=== PATIENT | male | born 1965 | race Two or more races ===

== ENCOUNTER 2023-03-07 02:30 | Emergency (ER) | payer OTHER ==
[~2023-03-07] VITALS: Ht 167.6 cm; Wt 80.9 kg
[2023-03-07 03:00] LABS: Basophils # (auto) 0.1 10 ^3/uL (0-0.2); Basophils % (auto) 0.5 % (0.0-2.0); Eosinophils # (auto) 0.5 10 ^3/uL (0-0.8); Hematocrit 42.5 % (41.0-53.0); Hemoglobin 14.6 g/dL (13.5-17.5); Lymphocytes % (auto) 42.3 % (10.0-50.0); Mean Corpuscular Hemoglobin 29.3 pg (28.0-32.0); Mean Corpuscular Hgb Conc. 34.4 g/dL (32.0-36.0); Monocytes # (auto) 0.7 10 ^3/uL (0-1.3); Monocytes % (auto) 7.5 % (0.0-12.0); Neutrophils # (auto) 4.2 10 ^3/uL (1.6-8.6); Neutrophils % (auto) 44.7 % (37.0-80.0); Nucleated Red Blood Cells % 0.2 %; Red Blood Cells 4.99 10^6/uL (4.5-5.90); Red Cell Distribution Width 13.8 % (11.8-14.3); White Blood Cell 9.4 10^3/uL (4.4-10.8)
[2023-03-07 03:16] LABS: INR 1.01 (0.9-1.15); Partial Thromboplastin Time 26.9 sec (24.6-33.4)
[2023-03-07 03:19] LABS: Albumin 3.5 g/dL (3.4-5.0); BUN/Creatinine Ratio 23.2 (10.0-20.0); Calcium 8.9 mg/dL (8.5-10.1); Magnesium 2.1 mg/dL (1.6-2.6)
[2023-03-07 03:21] LABS: Bilirubin, Total 0.3 mg/dL (0.2-1.0); Total Protein 7.7 g/dL (6.4-8.2)
[2023-03-07] MEDS ORDERED: POTASSIUM CHL 20 Meq TABLET PO ONE (08:30)
[2023-03-07] MEDS ORDERED: ASPirin 81 mg TAB PO ONE (09:00)
[2023-03-07] MEDS ORDERED: METOPROLOL SUCCINATE XL 50 MG TAB PO ONE (10:30)
[2023-03-07 10:43] VITALS: BP 187/76
[2023-03-07] MEDS ORDERED: METO25TA36 PO (10:49)
== END 2023-03-07 10:57 | disposition home or self-care (01) ==
LOC: ER 02:30
DX: R00.2 Palpitations (principal); E87.6 Hypokalemia; R73.9 Hyperglycemia, unspecified; I10 Essential (primary) hypertension; R06.02 Shortness of breath; Z79.01 Long term (current) use of anticoagulants
CPT/HCPCS: 36415; 71045; 80053; 83735; 83880; 84484; 85025; 85610; 85730; 93005